=== PATIENT | male | born 1975 | race Caucasian/White ===

== ENCOUNTER 2018-10-20 01:18 | Emergency (ER) | payer SELFPAY ==
[~2018-10-20] VITALS: Ht 162.6 cm; Wt 88.5 kg
[2018-10-20 01:23] VITALS: Ht 162.6 cm; Wt 88.5 kg
[2018-10-20 03:27] VITALS: BP 125/75
== END 2018-10-20 03:27 | disposition home or self-care (01) ==
LOC: ED 01:18
DX: S16.1XXA Strain of muscle, fascia and tendon at neck level, initial encounter (principal); S63.502A Unspecified sprain of left wrist, initial encounter; S09.8XXA Other specified injuries of head, initial encounter; V29.00XA Motorcycle driver injured in collision with unspecified motor vehicles in nontraffic accident, initial encounter; Y93.I9 Activity, other involving external motion; Y92.413 State road as the place of occurrence of the external cause; Y99.8 Other external cause status
CPT/HCPCS: J3010; L3999; Q0162